=== PATIENT | male | born 1990 | race Hispanic/Latino ===

== ENCOUNTER 2018-05-08 07:48 | Emergency (ER) | payer MEDICAID, BC ==
[2018-05-08 08:05] VITALS: BMI 25.6
[2018-05-08] MEDS ORDERED: Sodium Chloride 0.9% 1,000 ML IV STA (08:37)
[2018-05-08] MEDS ORDERED: Morphine 4 MG/ML VIAL ONE (08:39)
[2018-05-08] MEDS ORDERED: Famotidine 20mg/50ml 20 MG/50 ML BAG IVPB ONE ×2 (08:40→08:45)
--- NOTE | 2018-05-08 08:41 | ED PDOC ---
HPI: Abdomen Time Seen by Provider: 05/08/18 07:55 Chief Complaint (Nursing): Abdominal Pain Chief Complaint (Provider): Abd pain History Per: Patient History/Exam Limitations: no limitations Onset/Duration Of Symptoms: Days (today 5am) Additional Complaint(s): Pt. with epigastric pain. Constant. Feels like last time when he had a biliary blockage. No nausea, vomit, diarrhea, weakness, chest pain, lower abd pain, back pain, dyspnea. Had [employer] falafel yesterday. Past Medical History Reviewed: Nursing Documentation, Vital Signs Vital Signs: Last Vital Signs Temp 98.6 F 05/08/18 12:21 Pulse 68 05/08/18 12:21 Resp 16 05/08/18 12:21 BP 124/76 05/08/18 12:21 Pulse Ox 100 05/08/18 12:21 - Medical History PMH: Gall Bladder Disease, Pancreatitis Other PMH: Biliary Colic - Surgical History Surgical History: Cholecystectomy - Family History Family History: States: Unknown Family Hx - Social History Alcohol: None Drugs: Denies - Allergies Allergies/Adverse Reactions: Allergies Allergy/AdvReac Type Severity Reaction Status Date / Time No Known Allergies Allergy Verified 05/08/18 08:22 Review of Systems ROS Statement: Except As Marked, All Systems Reviewed And Found Negative Gastrointestinal: Positive for: Abdominal Pain Physical Exam - Reviewed Nursing Documentation Reviewed: Yes Vital Signs Reviewed: Yes - Physical Exam Appears: Positive for: Non-toxic, No Acute Distress Head Exam: Positive for: ATRAUMATIC, NORMAL INSPECTION, NORMOCEPHALIC Skin: Positive for: Normal Color, Warm, DRY Eye Exam: Positive for: EOMI, Normal appearance, PERRL ENT: Positive for: Normal ENT Inspection Neck: Positive for: Normal, Painless ROM Cardiovascular/Chest: Positive for: Regular Rate, Rhythm Respiratory: Positive for: CNT, Normal Breath Sounds Gastrointestinal/Abdominal: Positive for: Soft, Tenderness (epigastric) Back: Positive for: Normal Inspection. Negative for: L CVA Tenderness, R CVA Tenderness Extremity: Positive for: Normal ROM. Negative for: Tenderness, Pedal Edema Neurologic/Psych: Positive for: Alert, Oriented. Negative for: Motor/Sensory Deficits - Laboratory Results Result Diagrams: 05/08/18 08:56 05/08/18 08:56 - ECG ECG: Positive for: Interpreted By Me, Viewed By Me ECG Rhythm: Positive for: Sinus Bradycardia O2 Sat by Pulse Oximetry: 100 Pulse Ox Interpretation: Normal - Radiology X-Ray: Read By Radiologist X-Ray Interpretation: No Acute Disease - Progress ED Course And Treament: 1133: Feels uncomfortable and weakness. Will get ct for further eval. 1525: Dr. Flores to fu on imaging. Disposition - Clinical Impression Clinical Impression: Abdominal pain - Patient ED Disposition Is Patient to be Admitted: Transfer of Care - Disposition Disposition Time: 15:25 Condition: STABLE Patient Signed Over To: Arlette Flores
[2018-05-08] MEDS ORDERED: Morphine 4 MG/ML VIAL IV ONE (09:00)
[2018-05-08 09:11] LABS: BASO % 0.2 % (0.0-2.0); EOS # 0.1 K/uL (0.0-0.7); EOS % 0.8 % (0.0-4.0); HEMOGLOBIN 13.9 g/dL (12.0-18.0); LYMPH # 1.2 K/uL (1.0-4.3); LYMPH % 11.5 % (20.0-40.0); MEAN CELL VOLUME 78.2 fl (80.0-94.0); MEAN CORPUSCULAR HEMOGLOBIN 26.2 pg (27.0-31.0); MEAN CORPUSCULAR HGB CONC 33.5 g/dL (33.0-37.0); MEAN PLATELET VOLUME 8.3 fl (7.2-11.7); MONO # 0.5 K/uL (0.0-0.8); MONO % 5.2 % (0.0-10.0); NEUT # 8.3 K/uL (1.8-7.0); NEUT % 82.3 % (50.0-75.0); RBC 5.3 Mil/uL (4.40-5.90); RED CELL DISTRIBUTION WIDTH 14.1 % (11.5-14.5); WHITE BLOOD COUNT 10.1 K/uL (4.8-10.8)
[2018-05-08 09:17] LABS: ALB/GLOB RATIO 1.8 (1.0-2.1); ALBUMIN 4.5 g/dL (3.5-5.0); ALT/SGPT 104 U/L (21-72); AST/SGOT 143 U/L (17-59); BLOOD UREA NITROGEN 17 mg/dl (9-20); CALCIUM 9.5 mg/dL (8.4-10.2); GFR AFRICAN-AMERICAN > 60; GFR NON-AFRICAN AMERICAN > 60; LIPASE 54 U/L (23-300)
[2018-05-08 09:28] LABS: INR 1.1 (0.9-1.2); PARTIAL THROMBOPLASTIN TIME 28.1 Seconds (25.6-37.1); PROTHROMBIN TIME 11.7 Seconds (9.8-13.1)
--- NOTE | 2018-05-08 10:27 | RAD ---
HISTORY: dyspnea COMPARISON: No prior. FINDINGS: LUNGS: No active pulmonary disease. PLEURA: No significant pleural effusion identified, no pneumothorax apparent. CARDIOVASCULAR: Normal. OSSEOUS STRUCTURES: No significant abnormalities. VISUALIZED UPPER ABDOMEN: Normal. OTHER FINDINGS: None. IMPRESSION: No active disease.
[2018-05-08 11:23] VITALS: O2SAT 100
[2018-05-08] MEDS ORDERED: Iohexol 240 (50 ml) PO ONE (11:33)
[2018-05-08] MEDS ORDERED: Iohexol 240 (50 ml) ONE (12:16)
[2018-05-08 12:22] VITALS: PULSE 68
[2018-05-08] MEDS ORDERED: Iohexol 300 100 ML IJ ONE (14:08)
[2018-05-08] MEDS ORDERED: Sodium Chloride 0.9% 50 ML IV ONE (14:08)
--- NOTE | 2018-05-08 15:29 | ED PDOC ---
- Laboratory Results Result Diagrams: 05/08/18 08:56 05/08/18 08:56 - ECG O2 Sat by Pulse Oximetry: 100 - Progress ED Course And Treament: 3p P'ing ER workup, reassessment and final ER disposition. Accession No. : [id number] Patient Name / ID : DARIN Vergara / [id number] Exam Date : 05/08/2018 14:22:14 ( Approved ) Study Comment : Sex / Age : M / 28Y Creator : Conrado Patel MD Dictator : Manager Training : Internal Control Consultant : Conrado Patel MD Approver2 : Report Date : 05/08/2018 15:41:46 My Comment : PROCEDURE: CT abdomen pelvis 05/08/2018 HISTORY: Epigastric pain COMPARISON: No prior. TECHNIQUE: Contiguous helical/transaxial images of the abdomen and pelvis performed following oral and intravenous injection of approximately 95 cc Omnipaque 300 contrast material. Additional 2D sagittal and coronal reformats generated. Radiation dose: Total exam DLP = 834.79 mGy-cm. This CT exam was performed using one or more of the following dose reduction techniques: Automated exposure control, adjustment of the mA and/or kV according to patient size, and/or use of iterative reconstruction technique. FINDINGS: LOWER THORAX: Unremarkable. LIVER: Liver is enlarged measuring nearly 23 cm in CC dimension however this could be due to a Stef's lobe of with age for slightly foreshortened left lobe. Mild fatty hepatic infiltration. There is [id number] intrahepatic biliary ductal dilatation. Note also made of a small somewhat slightly irregular peripheral of ring-like enhancing lesion in the superior aspect left lobe of the liver which measures approximately 16 mm and of uncertain etiology though probably represents a small hemangioma. Followup triple phase CT scan of the liver could be performed confirm. Portal and splenic veins are opacified. GALLBLADDER AND BILE DUCTS: Gallbladder is contracted which presumably accounts thick-walled appearance. No obvious intraluminal calculi ; possibility of acalculous cholecystitis not excluded. Clinical correlation recommended. PANCREAS: The pancreatic head is somewhat bulbous though no definitive mass lesion seen. Consider followup MRCP if further evaluation is required. . SPLEEN: Spleen is mildly enlarged measuring nearly 14 cm in CC dimension. ADRENALS: Unremarkable. No adrenal lesions. KIDNEYS AND URETERS: Kidneys demonstrate symmetric nephrograms. . There appears to be a punctate nonobstructing calcification seen in the mid to lower pole of left kidney BLADDER: Urinary bladder physiologically distended. No evidence of intraluminal urinary bladder calculi. REPRODUCTIVE: Punctate calcification noted in the right parasagittal prostate gland. APPENDIX: Normal-appearing appendix best seen on coronal sequence image number [id number]. No periappendiceal inflammatory changes. BOWEL: Evaluation of the bowel is somewhat limited due to incomplete opacification. Stomach is incompletely distended which in part accounts for thick-walled appearance. Gastritis not excluded. Visualized loops of small bowel exhibit normal contour and caliber. No evidence of acute mechanical small bowel obstruction. There is a large amount of stool within the cecum and at ascending as well as transverse colon consistent with mild fecal retention/ constipation. PERITONEUM: Unremarkable. No fluid collection. No free air. Small fat containing left inguinal hernia. LYMPH NODES: Unremarkable. No enlarged lymph nodes. VASCULATURE: Unremarkable. No aortic aneurysm. BONES: No fracture or destructive lesion. OTHER FINDINGS: None. IMPRESSION: Hepatomegaly with fatty infiltration. Moderate intrahepatic biliary ductal dilatation. Gallbladder is collapsed on however no obvious intraluminal gallbladder calculi. Rule out acalculous cholecystitis. The pancreatic head is somewhat bulbous though no definitive mass lesion seen. Consider followup MRCP if further evaluation is required.. Note also made of a small somewhat slightly irregular peripheral of ring-like enhancing lesion in the superior aspect left lobe of the liver which measures approximately 16 mm and of uncertain etiology though probably represents a small hemangioma. Followup triple phase CT scan of the liver could be performed confirm. Splenomegaly. Punctate nonobstructing calcification seen in the left kidney. Dw pt findings. On reeval pt feeling better and eager to be discharged. Advised GI follow up within a week. Pt lives in [place] and prefers to follow up there. Disposition Counseled Patient/Family Regarding: Studies Performed, Diagnosis, Need For Followup, Rx Given - Clinical Impression Clinical Impression: Abdominal pain - POA Present On Arrival: None - Disposition Disposition: Routine/Home Disposition Time: 15:49 Condition: IMPROVED Additional Instructions: BLAND DIET WITH PLENTY OF HYDRATING FLUIDS FOLLOW UP WITH [facility] WITHIN A WEEK. THERE ARE MANY INCIDENTAL NONEMERGENT FINDINGS ON YOUR CT SCAN TO BE REVIEWED WITH YOUR SPECIALIST TAKE MEDICATIONS PRESCRIBED Prescriptions: Dexlansoprazole [Dexilant] 30 mg PO DAILY #30 sigifredo.bp Dicyclomine [Bentyl] 20 mg PO QID PRN #20 tab PRN Reason: abdominal pain Ondansetron ODT [Zofran ODT] 1 odt PO Q6 PRN #30 odt PRN Reason: Nausea/Vomiting Instructions: Acute Abdomen (Belly Pain)
--- NOTE | 2018-05-08 15:43 | CT ---
PROCEDURE: CT abdomen pelvis 05/08/2018 HISTORY: Epigastric pain COMPARISON: No prior. TECHNIQUE: Contiguous helical/transaxial images of the abdomen and pelvis performed following oral and intravenous injection of approximately 95 cc Omnipaque 300 contrast material. Additional 2D sagittal and coronal reformats generated. Radiation dose: Total exam DLP = 834.79 mGy-cm. This CT exam was performed using one or more of the following dose reduction techniques: Automated exposure control, adjustment of the mA and/or kV according to patient size, and/or use of iterative reconstruction technique. FINDINGS: LOWER THORAX: Unremarkable. LIVER: Liver is enlarged measuring nearly 23 cm in CC dimension however this could be due to a Stef's lobe of with age for slightly foreshortened left lobe. Mild fatty hepatic infiltration. There is [id number] intrahepatic biliary ductal dilatation. Note also made of a small somewhat slightly irregular peripheral of ring-like enhancing lesion in the superior aspect left lobe of the liver which measures approximately 16 mm and of uncertain etiology though probably represents a small hemangioma. Followup triple phase CT scan of the liver could be performed confirm. Portal and splenic veins are opacified. GALLBLADDER AND BILE DUCTS: Gallbladder is contracted which presumably accounts thick-walled appearance. No obvious intraluminal calculi ; possibility of acalculous cholecystitis not excluded. Clinical correlation recommended. PANCREAS: The pancreatic head is somewhat bulbous though no definitive mass lesion seen. Consider followup MRCP if further evaluation is required. . SPLEEN: Spleen is mildly enlarged measuring nearly 14 cm in CC dimension. ADRENALS: Unremarkable. No adrenal lesions. KIDNEYS AND URETERS: Kidneys demonstrate symmetric nephrograms. . There appears to be a punctate nonobstructing calcification seen in the mid to lower pole of left kidney BLADDER: Urinary bladder physiologically distended. No evidence of intraluminal urinary bladder calculi. REPRODUCTIVE: Punctate calcification noted in the right parasagittal prostate gland. APPENDIX: Normal-appearing appendix best seen on coronal sequence image number [id number]. No periappendiceal inflammatory changes. BOWEL: Evaluation of the bowel is somewhat limited due to incomplete opacification. Stomach is incompletely distended which in part accounts for thick-walled appearance. Gastritis not excluded. Visualized loops of small bowel exhibit normal contour and caliber. No evidence of acute mechanical small bowel obstruction. There is a large amount of stool within the cecum and at ascending as well as transverse colon consistent with mild fecal retention/ constipation. PERITONEUM: Unremarkable. No fluid collection. No free air. Small fat containing left inguinal hernia. LYMPH NODES: Unremarkable. No enlarged lymph nodes. VASCULATURE: Unremarkable. No aortic aneurysm. BONES: No fracture or destructive lesion. OTHER FINDINGS: None. IMPRESSION: Hepatomegaly with fatty infiltration. Moderate intrahepatic biliary ductal dilatation. Gallbladder is collapsed on however no obvious intraluminal gallbladder calculi. Rule out acalculous cholecystitis. The pancreatic head is somewhat bulbous though no definitive mass lesion seen. Consider followup MRCP if further evaluation is required.. Note also made of a small somewhat slightly irregular peripheral of ring-like enhancing lesion in the superior aspect left lobe of the liver which measures approximately 16 mm and of uncertain etiology though probably represents a small hemangioma. Followup triple phase CT scan of the liver could be performed confirm. Splenomegaly. Punctate nonobstructing calcification seen in the left kidney.
--- NOTE | 2018-05-08 16:03 | CARD ---
APPROVED REPORT EKG Measurement Heart [id number] <Conclusion> Sinus bradycardia with sinus arrhythmia Nonspecific ST abnormality Abnormal ECG
[2018-05-08 16:14] VITALS: BP 115/74; RESP 15; TEMP 98.3
== END 2018-05-08 16:13 | disposition home or self-care (01) ==
LOC: H.ER 07:48
DX: R10.13 Epigastric pain (principal); K85.90 Acute pancreatitis without necrosis or infection, unspecified
CPT/HCPCS: 71045; 74177; 80053; 83690; 84484; 85025; 85610; 85730; 93005; 96374; 96375; 96376; 99284; J1885; J2270; J7030; Q9966; Q9967